=== PATIENT | female | born 1985 | race American Indian/Alaskan Native ===

== ENCOUNTER 2018-10-21 13:00 | Outpatient (CLI) | payer OTHER ==
--- NOTE | 2018-10-21 13:59 | Ultrasound Report ---
BILATERAL DIGITAL DIAGNOSTIC MAMMOGRAM with CAD and LEFT BREAST ULTRASOUND: 10/21/18 CLINICAL: 33-year-old with a left breast lump. COMPARISON:None. These are baseline studies. FINDINGS: The breasts are heterogeneously dense, which may obscure small masses and breast density is sufficient to limit the sensitivity of mammography.No mass, architectural distortion or suspicious calcifications . No mammographic finding at a left palpable marker at approximately 9 o'clock at the areola. Targeted ultrasound of the left breast was performed from 9 o'clock to 11 o'clock near the areola and demonstrated normal fibroglandular structures with no mass, cyst or shadowing. I scanned the breast myself. I also examined the breast myself and felt normal mildly lumpy breast tissue with no suspicious lump. IMPRESSION: Negative mammogram and targeted negative left breast ultrasound. BI-RADS CATEGORY: 1 - - Negative RECOMMENDATION: Clinical follow-up of the palpable area and routine mammographic screening based on ACS guidelines. ACR BI-RADS MAMMOGRAPHIC CODES: 0 = Needs additional imaging evaluation; 1 = Negative; 2 = Benign; 3 = Probably benign; 4 = Suspicious; 5 = Malignant; 6 = Known biopsy-proven malignancy COMMENT: 1. Dense breast tissue, i.e., adenosis, fibrocystic changes, etc., may obscure an underlying neoplasm. 2. Approximately 10% of cancers are not detected with mammography. 3. A negative mammography report should not delay biopsy if a clinically suspicious mass is present. COMMENT: Patient follow-up letters are generated by our [employer] application.
== END 2018-10-21 13:01 | disposition home or self-care (01) ==
LOC: SPVWC 13:00
PROVIDERS: ATTEND Obstetrics & Gynecology
DX: N63.22 Unspecified lump in the left breast, upper inner quadrant (principal); Z80.3 Family history of malignant neoplasm of breast
CPT/HCPCS: 77066